=== PATIENT | male | born 1965 | race Caucasian/White ===

== ENCOUNTER → 2016-09-08 | Outpatient (CLI) | payer OTHER ==
[~2016-09-08] MED LIST: AUGMENTIN875 MG PO; AZELASTINE137 MCG/0. BOTH NARES; CHANTIX1 MG PO; DOXYCYCLINE HY100 MG PO; DULCOLAX10 MG PR; FENOFIBRATE54 M1 PO; GABAPENTIN300 MG PO; GLUCOPHAGE XR,500 MG PO; GRALISE300 MG PO; HUMALIN N; HUMALIN R; HUMALOG SC; HUMULIN R100 UNITS/ SC; HUMULIN R100 UNITS/ SQ; LANTUS 10100 UNITS/ SC; LANTUS 3 M100 UNITS1 SQ; LANTUS100 UNIT/1 SQ; LISINOPRIL20 MG PO; LYRICA150 MG PO; METFORMIN HCL1000 M1 PO; METOPROLOL SUCC25 MG PO; METOPROLOL TART25 MG PO; MOBIC7.5 MG PO; MOTRIN600 MG PO; NABUMETONE500 MG PO; NEURONTIN300 MG PO; NEURONTIN600 MG PO; NORTRIPTYLINE H25 MG PO; PERFOROMIS20 MCG/2 M IH; SYMBICORT60 INHALA1 IH; TRAMADOL HCL50 MG PO; TUDORZA PRESS400 MCG IH; VICODIN 5-3001 EACH PO; ZESTRIL,PRINIVI20 MG PO
== END | disposition home or self-care (01) ==
LOC: CDC 11:49
DX: R94.31 Abnormal electrocardiogram [ECG] [EKG] (principal)
CPT/HCPCS: 93000

== ENCOUNTER 2016-09-10 12:32 | Day surgery (SDC) | payer OTHER ==
[~2016-09-10] VITALS: Ht 176.5 cm; Wt 140.7 kg
[~2016-09-10 12:32] MED LIST changes: -AUGMENTIN875 MG PO
[2016-09-10 13:11] VITALS: BP 116/66
[2016-09-10] MEDS ORDERED: AUGMENTIN875 MG PO (13:15)
[2016-09-10 13:23] LABS: POINT-OF-CARE METER ID UU14174212
[2016-09-10 15:30] LABS: POINT-OF-CARE METER ID UU14174212
[2016-09-10 15:47] LABS: POINT-OF-CARE METER ID UU14174212
[2016-09-10 17:11] LABS: POINT-OF-CARE METER ID UU13113675
[2016-09-10] MEDS ORDERED: TRAMADOL HCL50 MG PO (17:32)
[2016-09-10 18:00] VITALS: BP 131/61
[2016-09-10 18:38] VITALS: BP 131/60
== END 2016-09-10 18:46 | disposition home or self-care (01) ==
LOC: SDC 12:32
PROVIDERS: Surgery
PROC: 0Y6R0Z0 Detachment at Right 2nd Toe, Complete, Open Approach (ICD-10-PCS; principal; 2016-09-10)
DX: M86.171 Other acute osteomyelitis, right ankle and foot (principal); E11.621 Type 2 diabetes mellitus with foot ulcer; E11.40 Type 2 diabetes mellitus with diabetic neuropathy, unspecified; L97.509 Non-pressure chronic ulcer of other part of unspecified foot with unspecified severity; I10 Essential (primary) hypertension; I25.2 Old myocardial infarction; J44.9 Chronic obstructive pulmonary disease, unspecified; I25.10 Atherosclerotic heart disease of native coronary artery without angina pectoris; E78.5 Hyperlipidemia, unspecified; G40.909 Epilepsy, unspecified, not intractable, without status epilepticus; Z95.5 Presence of coronary angioplasty implant and graft; Z79.84 Long term (current) use of oral hypoglycemic drugs; Z87.891 Personal history of nicotine dependence; Z79.891 Long term (current) use of opiate analgesic; Z79.899 Other long term (current) drug therapy
CPT/HCPCS: 82948; 88305; 88311; J0295; J2250; J2405; J3010; J7050; S0020

== ENCOUNTER 2016-11-01 12:51 | Inpatient (IN) | payer OTHER ==
[~2016-11-01] VITALS: Ht 175.3 cm; Wt 138.6 kg
[~2016-11-01 12:51] MED LIST changes: +AUGMENTIN875 MG PO
[2016-11-01 14:49] LABS: BASOPHIL COUNT 0.1 K/uL (0-0.1); EOSINOPHIL (%) 1.7 % (0-5); EOSINOPHIL COUNT 0.4 K/uL (0-0.3); HEMATOCRIT 32.8 % (38.0-50.0); IMMATURE GRANULOCYTE (%) 0.9 % (0.0-0.7); IMMATURE GRANULOCYTE COUNT 0.2 K/uL; INSTRUMENT ABS NEUTROPHIL CT 18.7 K/uL; LYMPHOCYTE COUNT 1.2 K/uL (1.0-2.8); MCH 27.1 PG (29.0-34.0); MCV 84.8 FL (86-99); MEAN PLAT.VOLUME 9.4 uM^3 (9.0-12.4); MONOCYTE (%) 7.8 % (3-12); MONOCYTE COUNT 1.7 K/uL (0-0.8); NEUTROPHIL (%) 83.8 % (45-76); NEUTROPHIL COUNT 18.7 K/uL (1.8-6.4); PLATELET COUNT 501 K/uL (156-360); RBC DIS.WIDTH-CV 14.6 % (11.8-14.6); RBC DIS.WIDTH-SD 45.1 % (39-53); RED BLOOD COUNT 3.87 M/uL (4.00-5.50); WHITE BLOOD COUNT 22.4 K/uL (4.1-10.2)
[2016-11-01 14:57] LABS: CHLORIDE 101 mEq/L (99-109); POTASSIUM 3.8 mEq/L (3.7-5.4); SODIUM 139 mEq/L (136-147)
[2016-11-01 14:58] LABS: GLUCOSE 292 mg/dL (70-99)
[2016-11-01 15:00] LABS: ANION GAP 13 MEQ/L (2-14)
[2016-11-01 15:02] LABS: GFR ESTIMATE (CALCULATED) > 59 mL/min/
[2016-11-01 15:03] LABS: UREA NITROGEN (BUN) 24 mg/dL (9-23)
[2016-11-01] MEDS ORDERED: HUMULIN R500 UNITS/ SC ×2 (19:13→19:15)
[2016-11-01] MEDS ORDERED: GABAPENTIN600 MG PO (19:20)
[2016-11-01] MEDS ORDERED: PERCOCET 5/31 TABLET PO (19:22)
[2016-11-01] MEDS ORDERED: NOVOLOG100 UNIT/1 SC (19:23)
[2016-11-01] MEDS ORDERED: TYLENOL EXTRA500 MG PO (19:24)
[2016-11-01 19:59] LABS: ADD MIUA? NO; BILIRUBIN SMALL; BLOOD NEGATIVE; GLUCOSE (STRIP) >=500; KETONES 5; LEUKOCYTES NEGATIVE; NITRITE NEGATIVE; PROTEIN (STRIP) 30; SPECIFIC GRAVITY 1.029 (1.000-1.030); UCUL ADDED? NO
[2016-11-01 20:11] LABS: COLOR DK YELLOW ((YELLOW))
[2016-11-01 23:45] VITALS: BP 150/70
[2016-11-01 23:57] LABS: POINT-OF-CARE METER ID UU13113725
[2016-11-02 06:23] LABS: POINT-OF-CARE METER ID UU13113725
[2016-11-02 08:06] VITALS: BP 129/60
[2016-11-02 09:20] LABS: BASOPHIL COUNT 0.1 K/uL (0-0.1); EOSINOPHIL (%) 1.2 % (0-5); EOSINOPHIL COUNT 0.2 K/uL (0-0.3); HEMATOCRIT 28.3 % (38.0-50.0); IMMATURE GRANULOCYTE (%) 2.7 % (0.0-0.7); IMMATURE GRANULOCYTE COUNT 0.5 K/uL; INSTRUMENT ABS NEUTROPHIL CT 14.9 K/uL; LYMPHOCYTE COUNT 1.7 K/uL (1.0-2.8); MCH 26.9 PG (29.0-34.0); MCHC 31.8 G/DL (30.0-36.0); MCV 84.5 FL (86-99); MEAN PLAT.VOLUME 9.5 uM^3 (9.0-12.4); MONOCYTE (%) 9.1 % (3-12); MONOCYTE COUNT 1.8 K/uL (0-0.8); NEUTROPHIL (%) 77.7 % (45-76); NEUTROPHIL COUNT 14.9 K/uL (1.8-6.4); PLATELET COUNT 516 K/uL (156-360); RBC DIS.WIDTH-CV 14.5 % (11.8-14.6); RED BLOOD COUNT 3.35 M/uL (4.00-5.50); WHITE BLOOD COUNT 19.2 K/uL (4.1-10.2)
[2016-11-02 09:40] LABS: ALKALINE PHOSPHATASE 121 IU/L (3-129); ANION GAP 11 MEQ/L (2-14); CHLORIDE 98 MEQ/L (99-109); GFR ESTIMATE (CALCULATED) > 59 mL/min/; GLUCOSE 219 mg/dL (70-99); POTASSIUM 3.8 MEQ/L (3.7-5.4); SAMPLE HEMOLYSIS CHECK 0; SAMPLE ICTERIC CHECK 0; SAMPLE LIPEMIA CHECK 0; SODIUM 136 MEQ/L (136-147); TOTAL BILIRUBIN 0.7 MG/DL (0.0-1.0); UREA NITROGEN (BUN) 16 mg/dL (9-23)
[2016-11-02 11:51] LABS: POINT-OF-CARE METER ID UU13113725
[2016-11-02 15:33] VITALS: BP 144/68
[2016-11-02 16:24] LABS: POINT-OF-CARE METER ID UU13113725
[2016-11-02 21:07] LABS: POINT-OF-CARE METER ID UU13113725
[2016-11-02 23:58] VITALS: BP 132/67
[2016-11-03 03:21] VITALS: BP 132/60
[2016-11-03 05:59] LABS: POINT-OF-CARE METER ID UU13113725
[2016-11-03 06:33] LABS: EOSINOPHIL COUNT 0.4 K/uL (0-0.3); HEMATOCRIT 29.7 % (38.0-50.0); IMMATURE GRANULOCYTE (%) 3.9 % (0.0-0.7); IMMATURE GRANULOCYTE COUNT 0.7 K/uL; LYMPHOCYTE COUNT 1.6 K/uL (1.0-2.8); MCH 26.6 PG (29.0-34.0); MCV 85.8 FL (86-99); MEAN PLAT.VOLUME 9.2 uM^3 (9.0-12.4); MONOCYTE (%) 9.2 % (3-12); MONOCYTE COUNT 1.6 K/uL (0-0.8); NEUTROPHIL (%) 75.7 % (45-76); PLATELET COUNT 489 K/uL (156-360); RBC DIS.WIDTH-CV 14.7 % (11.8-14.6); RBC DIS.WIDTH-SD 46.6 % (39-53); RED BLOOD COUNT 3.46 M/uL (4.00-5.50); WHITE BLOOD COUNT 17.2 K/uL (4.1-10.2)
[2016-11-03 07:04] LABS: ALKALINE PHOSPHATASE 120 IU/L (3-129); ANION GAP 12 MEQ/L (2-14); CHLORIDE 100 MEQ/L (99-109); GFR ESTIMATE (CALCULATED) > 59 mL/min/; POTASSIUM 3.8 MEQ/L (3.7-5.4); SAMPLE HEMOLYSIS CHECK 0; SAMPLE ICTERIC CHECK 0; SAMPLE LIPEMIA CHECK 0; SODIUM 139 MEQ/L (136-147); TOTAL BILIRUBIN 0.6 MG/DL (0.0-1.0); UREA NITROGEN (BUN) 12 mg/dL (9-23)
[2016-11-03 07:05] LABS: GLUCOSE 87 mg/dL (70-99)
[2016-11-03 08:30] VITALS: BP 142/72
[2016-11-03 17:51] VITALS: BP 144/68
[2016-11-04 00:20] VITALS: BP 127/61; BP 137/60
[2016-11-04 05:31] LABS: POINT-OF-CARE METER ID UU13113725
[2016-11-04 07:49] VITALS: BP 136/69
[2016-11-04 08:47] LABS: HEMATOCRIT 31.2 % (38.0-50.0); MCH 26.4 PG (29.0-34.0); MCHC 30.4 G/DL (30.0-36.0); MCV 86.7 FL (86-99); MEAN PLAT.VOLUME 9.2 uM^3 (9.0-12.4); PLATELET COUNT 557 K/uL (156-360); RBC DIS.WIDTH-CV 14.6 % (11.8-14.6); WHITE BLOOD COUNT 12.7 K/uL (4.1-10.2)
[2016-11-04 09:23] LABS: ALKALINE PHOSPHATASE 125 IU/L (3-129); ANION GAP 13 MEQ/L (2-14); CHLORIDE 99 MEQ/L (99-109); GFR ESTIMATE (CALCULATED) > 59 mL/min/; GLUCOSE 106 mg/dL (70-99); POTASSIUM 4.2 MEQ/L (3.7-5.4); SAMPLE HEMOLYSIS CHECK 0; SAMPLE ICTERIC CHECK 0; SAMPLE LIPEMIA CHECK 0; SODIUM 140 MEQ/L (136-147); UREA NITROGEN (BUN) 13 mg/dL (9-23)
[2016-11-04 09:36] LABS: TOTAL BILIRUBIN 0.4 MG/DL (0.0-1.0)
[2016-11-04 16:10] VITALS: BP 145/71
[2016-11-05 00:56] VITALS: BP 168/78
[2016-11-05 06:24] LABS: POINT-OF-CARE METER ID UU13113725
[2016-11-05 06:39] LABS: HEMATOCRIT 35.7 % (38.0-50.0); MCH 26.5 PG (29.0-34.0); MCHC 30.3 G/DL (30.0-36.0); MCV 87.5 FL (86-99); PLATELET COUNT 608 K/uL (156-360); RBC DIS.WIDTH-CV 14.7 % (11.8-14.6); RBC DIS.WIDTH-SD 47.5 % (39-53); RED BLOOD COUNT 4.08 M/uL (4.00-5.50); WHITE BLOOD COUNT 12.2 K/uL (4.1-10.2)
[2016-11-05 07:40] LABS: ANION GAP 12 MEQ/L (2-14); CHLORIDE 100 MEQ/L (99-109); GFR ESTIMATE (CALCULATED) > 59 mL/min/; POTASSIUM 3.7 MEQ/L (3.7-5.4); SAMPLE HEMOLYSIS CHECK 0; SAMPLE ICTERIC CHECK 0; SAMPLE LIPEMIA CHECK 0; SODIUM 140 MEQ/L (136-147); UREA NITROGEN (BUN) 12 mg/dL (9-23)
[2016-11-05 07:42] LABS: GLUCOSE 65 mg/dL (70-99)
[2016-11-05 08:17] VITALS: BP 183/78
[2016-11-05 16:57] LABS: POINT-OF-CARE METER ID UU13113725
[2016-11-05 17:17] LABS: POINT-OF-CARE METER ID UU13113725
[2016-11-05 17:18] VITALS: BP 140/78
[2016-11-05 19:12] LABS: POINT-OF-CARE METER ID UU13113725
[2016-11-05 21:21] LABS: POINT-OF-CARE METER ID UU13113725
[2016-11-05 23:21] VITALS: BP 160/71
[2016-11-06 07:19] VITALS: BP 134/65
[2016-11-06 07:39] LABS: POINT-OF-CARE METER ID UU13113725
[2016-11-06 07:44] LABS: HEMATOCRIT 31.9 % (38.0-50.0); MCHC 31.3 G/DL (30.0-36.0); MCV 86.2 FL (86-99); MEAN PLAT.VOLUME 8.8 uM^3 (9.0-12.4); PLATELET COUNT 611 K/uL (156-360); RBC DIS.WIDTH-CV 14.6 % (11.8-14.6)
[2016-11-06 08:09] LABS: ANION GAP 11 MEQ/L (2-14); CHLORIDE 101 MEQ/L (99-109); GFR ESTIMATE (CALCULATED) > 59 mL/min/; SAMPLE HEMOLYSIS CHECK 0; SAMPLE ICTERIC CHECK 0; SAMPLE LIPEMIA CHECK 0; SODIUM 139 MEQ/L (136-147); UREA NITROGEN (BUN) 11 mg/dL (9-23)
[2016-11-06 08:14] LABS: GLUCOSE 100 mg/dL (70-99)
[2016-11-06 09:54] LABS: ABS NEUTROPHIL COUNT 9.5; ATYPICAL LYMPHOCYTE 5.2 %; BAND NEUTROPHILS 0.9 % (0-8.0); EOSINOPHIL ABS CT 0.1; EOSINOPHILS 0.9 % (0-5.0); INSTRUMENT ABS NEUTROPHIL CT 8.1 K/uL; LYMPHOCYTES 11.3 % (15.0-45.0); METAMYELOCYTES 0.9 %; PLAT.SUFFICIENCY INCREASED; POLYCHROMASIA 1+; SEG.NEUTROPHILS 78.2 % (46.0-76.0); SMUDGE CELLS 3.5; STOMATOCYTES 1+
[2016-11-06 11:15] LABS: POINT-OF-CARE METER ID UU13113725
[2016-11-06 15:41] VITALS: BP 122/74
[2016-11-06 16:26] LABS: POINT-OF-CARE METER ID UU13113725
[2016-11-06 21:06] LABS: POINT-OF-CARE METER ID UU13113725
[2016-11-06 23:26] VITALS: BP 138/66
[2016-11-07 05:44] LABS: POINT-OF-CARE METER ID UU13113725
[2016-11-07 06:03] LABS: POINT-OF-CARE METER ID UU13113725
[2016-11-07 07:01] LABS: POINT-OF-CARE METER ID UU13113725
[2016-11-07 08:01] VITALS: BP 183/83
[2016-11-07 11:54] LABS: POINT-OF-CARE METER ID UU13113725
[2016-11-07 14:27] VITALS: BP 156/73
[2016-11-07 16:30] LABS: POINT-OF-CARE METER ID UU13113725
[2016-11-07 20:38] LABS: POINT-OF-CARE METER ID UU13113725
[2016-11-07 22:02] LABS: POINT-OF-CARE METER ID UU13113725
[2016-11-07 22:59] VITALS: BP 136/67
[2016-11-08 06:11] LABS: POINT-OF-CARE METER ID UU13113725
[2016-11-08 09:15] VITALS: BP 166/72
[2016-11-08 11:04] LABS: POINT-OF-CARE METER ID UU13113725
[2016-11-08 16:00] VITALS: BP 171/81
[2016-11-08 16:41] LABS: POINT-OF-CARE METER ID UU13113725
[2016-11-08 21:24] LABS: POINT-OF-CARE METER ID UU13113725
[2016-11-08 23:51] VITALS: BP 163/74
[2016-11-09 06:19] LABS: POINT-OF-CARE METER ID UU13113725
[2016-11-09] MEDS ORDERED: LORATADINE10 M2 PO (08:10)
[2016-11-09] MEDS ORDERED: DOCUSATE SODIU100 MG PO (08:10)
[2016-11-09 08:22] VITALS: BP 161/81
[2016-11-09 10:44] LABS: GFR ESTIMATE (CALCULATED) > 59 mL/min/; UREA NITROGEN (BUN) 11 mg/dL (9-23)
[2016-11-09 11:06] LABS: POINT-OF-CARE METER ID UU13113725
[2016-11-09 15:58] VITALS: BP 163/78
[2016-11-09 16:21] LABS: POINT-OF-CARE METER ID UU13113725
[2016-11-09 21:02] LABS: POINT-OF-CARE METER ID UU13113725
== END 2016-11-09 21:31 | disposition home or self-care (01) | DRG 872 ==
LOC: EME 12:51 → 5EAST 18:00 → EDOF 18:00 → 5EAST 23:18
PROVIDERS: Nurse Practitioner Adult Health; Pediatrics; Physician Assistant
PROC: 0H9MXZX Drainage of Right Foot Skin, External Approach, Diagnostic (ICD-10-PCS; principal; 2016-11-02)
DX: A41.02 Sepsis due to Methicillin resistant Staphylococcus aureus (principal); A41.9 Sepsis, unspecified organism; E66.01 Morbid (severe) obesity due to excess calories; L03.031 Cellulitis of right toe; E11.69 Type 2 diabetes mellitus with other specified complication; E11.65 Type 2 diabetes mellitus with hyperglycemia; E78.5 Hyperlipidemia, unspecified; L02.611 Cutaneous abscess of right foot; I10 Essential (primary) hypertension; J44.9 Chronic obstructive pulmonary disease, unspecified; G89.29 Other chronic pain; M54.5 Low back pain; E11.649 Type 2 diabetes mellitus with hypoglycemia without coma; E11.42 Type 2 diabetes mellitus with diabetic polyneuropathy; S92.321A Displaced fracture of second metatarsal bone, right foot, initial encounter for closed fracture; M86.8X7 Other osteomyelitis, ankle and foot; G47.33 Obstructive sleep apnea (adult) (pediatric); E11.628 Type 2 diabetes mellitus with other skin complications; Z83.3 Family history of diabetes mellitus; Z89.429 Acquired absence of other toe(s), unspecified side; Z87.891 Personal history of nicotine dependence; Z79.4 Long term (current) use of insulin
CPT/HCPCS: 70450; 70486; 73630; 76937; 80048; 80053; 80069; 80202; 81003; 82565; 82948; 83605; 84520; 85025; 85027; 87040; 87070; 87075; 87077; 87147; 87186; 87205; 87801; 94640; 94640 76; 99281; 99285; J1650; J1815; J2543; J3370; J7050

== ENCOUNTER 2016-12-31 11:13 | Emergency (ER) | payer OTHER ==
[~2016-12-31] VITALS: Ht 175.3 cm; Wt 141.0 kg
[~2016-12-31 11:13] MED LIST changes: +DOCUSATE SODIU100 MG PO; +GABAPENTIN600 MG PO; +HUMULIN R500 UNITS/ SC; +LORATADINE10 M2 PO; +NOVOLOG100 UNIT/1 SC; +PERCOCET 5/31 TABLET PO; +TYLENOL EXTRA500 MG PO
[2016-12-31 13:17] LABS: HEMATOCRIT 33.9 % (38.0-50.0); MCH 25.7 PG (29.0-34.0); MCHC 31.3 G/DL (30.0-36.0); MCV 82.1 FL (86-99); MEAN PLAT.VOLUME 8.7 uM^3 (9.0-12.4); PLATELET COUNT 306 K/uL (156-360); RBC DIS.WIDTH-SD 45.6 % (39-53); RED BLOOD COUNT 4.13 M/uL (4.00-5.50); WHITE BLOOD COUNT 6.4 K/uL (4.1-10.2)
[2016-12-31 13:29] LABS: CHLORIDE 99 mEq/L (99-109); POTASSIUM 4.4 mEq/L (3.7-5.4); SODIUM 137 mEq/L (136-147)
[2016-12-31 13:30] LABS: GLUCOSE 299 mg/dL (70-99)
[2016-12-31 13:32] LABS: ANION GAP 10 MEQ/L (2-14)
[2016-12-31 13:34] LABS: GFR ESTIMATE (CALCULATED) > 59 mL/min/
[2016-12-31 13:35] LABS: UREA NITROGEN (BUN) 13 mg/dL (9-23)
[2016-12-31 16:22] VITALS: BP 146/73
== END 2016-12-31 16:23 | disposition home or self-care (01) ==
LOC: EME 11:13
PROVIDERS: Physician Assistant
DX: S81.801A Unspecified open wound, right lower leg, initial encounter (principal); E11.9 Type 2 diabetes mellitus without complications; Z79.4 Long term (current) use of insulin; I25.2 Old myocardial infarction; E78.5 Hyperlipidemia, unspecified; Z98.61 Coronary angioplasty status; Z79.84 Long term (current) use of oral hypoglycemic drugs; Z87.891 Personal history of nicotine dependence
CPT/HCPCS: 73630; 80048; 83605; 85027; 93971; 99281; 99283